=== PATIENT | female | born 1990 ===

== ENCOUNTER 2017-10-15 06:19 | Emergency (ER) | payer MEDICAID, OTHER ==
[2017-10-15 06:35] VITALS: BP 122/89; PULSE 100; RESP 18; TEMP 98.8; O2SAT 98
--- NOTE | 2017-10-15 07:40 | ED PDOC ---
- ECG O2 Sat by Pulse Oximetry: 98 Disposition - Disposition Referrals: Enrique Nick MD [Primary Care Provider] - Forms: [employer] (Pashto)
--- NOTE | 2017-10-15 07:59 | ED PDOC ---
HPI: General Adult Time Seen by Provider: 10/15/17 07:04 Chief Complaint (Nursing): Anxiety Chief Complaint (Provider): Anxiety History Per: Patient History/Exam Limitations: no limitations Onset/Duration Of Symptoms: Days (7 days ago) Current Symptoms Are (Timing): Still Present Additional Complaint(s): 27 y/o female with a past medical history of anxiety and depression, presents to the ED complaining of anxiety, onset of 7 days ago. Patient reports that her anxiety was triggered by a disagreement with her significant other mixed with alcohol abuse in the past week, and reports that she has had a problem with alcohol in the past. She states that she often relapses/binges after relationship or life stress. She reports of nausea, restlessness, sleeplessness , and left shoulder discomfort. She denies any suicidal ideation. Past Medical History Vital Signs: Last Vital Signs Temp 98.8 F 10/15/17 06:31 Pulse 100 H 10/15/17 06:31 Resp 18 10/15/17 06:31 BP 122/89 10/15/17 06:31 Pulse Ox 98 10/15/17 08:08 - Medical History PMH: Anxiety, Depression Denies: Diabetes, Hepatitis, HIV, HTN, Seizures, Sexually Transmitted Disease - Surgical History Surgical History: No Surg Hx - Family History Family History: States: Unknown Family Hx - Social History Current smoker - smoking cessation education provided: No Ex-Smoker (has not smoked in the last 12 months): No Alcohol: > 2 Drinks/Day Drugs: Denies - Home Medications Home Medications: Ambulatory Orders Medication Instructions Recorded Zolpidem HALF TABLET [Ambien] 2.5 mg PO HS #4 tab 08/15/16 - Allergies Allergies/Adverse Reactions: Allergies Allergy/AdvReac Type Severity Reaction Status Date / Time No Known Allergies Allergy Verified 10/15/17 06:47 Review of Systems ROS Statement: Except As Marked, All Systems Reviewed And Found Negative Gastrointestinal: Positive for: Nausea Musculoskeletal: Positive for: Shoulder Pain Psych: Positive for: Anxiety. Negative for: Suicidal ideation Physical Exam - Reviewed Nursing Documentation Reviewed: Yes Vital Signs Reviewed: Yes - Physical Exam Appears: Positive for: Non-toxic, No Acute Distress Head Exam: Positive for: ATRAUMATIC Skin: Positive for: Normal Color, Warm Eye Exam: Positive for: Normal appearance Neck: Positive for: Normal, Painless ROM, Supple Cardiovascular/Chest: Positive for: Regular Rate, Rhythm. Negative for: Murmur Respiratory: Positive for: Normal Breath Sounds. Negative for: Respiratory Distress Back: Positive for: Normal Inspection Extremity: Positive for: Normal ROM. Negative for: Pedal Edema, Deformity Neurologic/Psych: Positive for: Alert, Oriented, Other (anxious; poor eye contact; speech is clear; fair insight with poor judgement). Negative for: Motor/Sensory Deficits - ECG ECG: Positive for: Interpreted By Me, Viewed By Me ECG Rhythm: Positive for: Normal ST Segment, Sinus Rhythm (88) O2 Sat by Pulse Oximetry: 98 Medical Decision Making Medical Decision Making: Time: --07:35 Impression: --27 y/o female with anxiety and alcohol abuse Plan: --ECG --Jania EValuation --ED Urine Dip --ED Urine --ATivan 1mg PO Reassess cleared by crisis/ Dr Perales for DC Patient comfortable going home Refused CXR after risks explained given hx shoulder/ L upper chest pain r/o PTX or other chest pathology which can be life threatening Work note provided. HR 85 on re-eval. Scribe Attestation: Documented by Niall Henderson acting as a scribe for Yefri Smith DO. Disposition - Clinical Impression Clinical Impression: Anxiety, Alcohol use disorder - Patient ED Disposition Is Patient to be Admitted: No Counseled Patient/Family Regarding: Studies Performed, Diagnosis, Need For Followup, Rx Given - Disposition Referrals: Alcoholics Anonymous [Outside] [facility] [Outside] Enrique Nick MD [Primary Care Provider] - Disposition: Routine/Home Disposition Time: 08:30 Condition: STABLE Additional Instructions: Avoid alcohol use. Return to ER for any concern for self. Instructions: At-Risk Alcohol Use (ED), Anxiety (ED) Forms: [employer] (Montserratian), [facility] ED School/Work Excuse
--- NOTE | 2017-10-15 12:51 | CARD ---
APPROVED REPORT EKG Measurement Heart [id number] <Conclusion> Normal sinus rhythm Normal ECG
== END 2017-10-15 08:50 | disposition home or self-care (01) ==
LOC: H.ER 06:19
DX: F41.9 Anxiety disorder, unspecified (principal); F10.10 Alcohol abuse, uncomplicated; F32.9 Major depressive disorder, single episode, unspecified; Z87.891 Personal history of nicotine dependence

== ENCOUNTER 2018-02-06 20:06 | Emergency (ER) | payer BC, OTHER ==
[2018-02-06 20:16] VITALS: RESP 18
[2018-02-06] MEDS ORDERED: Albuterol 0.083% Inhal Sol (2.5 mg/3 mL) UD INH STA (20:51)
[2018-02-06] MEDS ORDERED: Albuterol 0.083% Inhal Sol (2.5 mg/3 mL) UD ONE (20:58)
[2018-02-06 21:19] LABS: BASO # 0.1 K/uL (0.0-0.2); BASO % 0.9 % (0.0-2.0); EOS # 0.1 K/uL (0.0-0.7); EOS % 1.8 % (0.0-4.0); LYMPH # 1.9 K/uL (1.0-4.3); LYMPH % 24.9 % (20.0-40.0); MEAN CELL VOLUME 93.1 fl (81.0-99.0); MEAN CORPUSCULAR HEMOGLOBIN 30.9 pg (27.0-31.0); MEAN CORPUSCULAR HGB CONC 33.2 g/dL (33.0-37.0); MEAN PLATELET VOLUME 9.3 fl (7.2-11.7); MONO # 0.7 K/uL (0.0-0.8); MONO % 9.5 % (0.0-10.0); NEUT # 4.8 K/uL (1.8-7.0); NEUT % 62.9 % (50.0-75.0); RBC 4.26 Mil/uL (3.80-5.20); RED CELL DISTRIBUTION WIDTH 17.3 % (11.5-14.5); WHITE BLOOD COUNT 7.6 K/uL (4.8-10.8)
[2018-02-06 21:28] LABS: ALB/GLOB RATIO 1.3 (1.0-2.1); ALBUMIN 4.6 g/dL (3.5-5.0); ALT/SGPT 42 U/L (9-52); AST/SGOT 39 U/L (14-36); BLOOD UREA NITROGEN 8 mg/dl (7-17); CALCIUM 9.4 mg/dL (8.4-10.2); GFR AFRICAN-AMERICAN > 60; GFR NON-AFRICAN AMERICAN > 60
[2018-02-06 21:32] LABS: HEMOGLOBIN 13.2 g/dL (12.0-16.0)
--- NOTE | 2018-02-06 21:50 | ED PDOC ---
HPI: Chest Pain Time Seen by Provider: 02/06/18 20:20 Chief Complaint (Nursing): Cough, Cold, Congestion Chief Complaint (Provider): Left sided chest pain, SOB x 1 week History Per: Patient History/Exam Limitations: no limitations Onset/Duration Of Symptoms: Days Current Symptoms Are (Timing): Still Present Quality: Sharp Associated Symptoms: denies: Nausea, Dyspnea, Diaphoresis, Syncope Modifying Factors: None Additional Complaint(s): 27 yo female with no medical problems presents with SOB, left sided pleuritic chest pain for a few days. Pt states she has been gettign gradually sick the last few days. No fever/chills. Past Medical History Reviewed: Historical Data, Nursing Documentation, Vital Signs Vital Signs: Last Vital Signs Temp 98.1 F 02/06/18 23:25 Pulse 83 02/06/18 23:25 Resp 18 02/06/18 23:25 BP 132/89 02/06/18 23:25 Pulse Ox 100 02/06/18 23:25 - Medical History PMH: Anxiety, Depression Denies: Diabetes, Hepatitis, HIV, HTN, Seizures, Sexually Transmitted Disease - Surgical History Surgical History: No Surg Hx - Family History Family History: States: Unknown Family Hx - Home Medications Home Medications: Ambulatory Orders Medication Instructions Recorded Zolpidem HALF TABLET [Ambien] 2.5 mg PO HS #4 tab 08/15/16 Albuterol Sulfate [Proventil Hfa] 0.09 mg IH Q6H #1 inhaler 02/06/18 Azithromycin [Zithromax] 250 mg PO DAILY #6 tab 02/06/18 predniSONE [predniSONE Tab] 20 mg PO DAILY #12 tab 02/06/18 - Allergies Allergies/Adverse Reactions: Allergies Allergy/AdvReac Type Severity Reaction Status Date / Time No Known Allergies Allergy Verified 10/15/17 06:47 Review of Systems ROS Statement: Except As Marked, All Systems Reviewed And Found Negative Constitutional: Negative for: Fever, Chills Respiratory: Positive for: Cough, Shortness of Breath Gastrointestinal: Negative for: Nausea, Vomiting, Abdominal Pain Physical Exam - Reviewed Nursing Documentation Reviewed: Yes Vital Signs Reviewed: Yes - Physical Exam Appears: Positive for: Well, Non-toxic, No Acute Distress Head Exam: Positive for: ATRAUMATIC, NORMAL INSPECTION, NORMOCEPHALIC Skin: Positive for: Normal Color, Warm, DRY Eye Exam: Positive for: Normal appearance ENT: Positive for: Normal ENT Inspection Neck: Positive for: Normal, Painless ROM Cardiovascular/Chest: Positive for: Regular Rate, Rhythm Respiratory: Positive for: CNT, Normal Breath Sounds Gastrointestinal/Abdominal: Positive for: Normal Exam, Soft Back: Positive for: Normal Inspection Extremity: Positive for: Normal ROM Neurologic/Psych: Positive for: Alert, Oriented - Laboratory Results Result Diagrams: 02/06/18 21:10 02/06/18 21:10 - ECG O2 Sat by Pulse Oximetry: 99 Medical Decision Making Medical Decision Making: Pt tachycardic while i was in room. HR >105. Pt states she also thinks her grandmother had a clotting disorder. Disposition - Clinical Impression Clinical Impression: URI (upper respiratory infection) - Patient ED Disposition Is Patient to be Admitted: No Counseled Patient/Family Regarding: Diagnosis, Need For Followup, Rx Given - Disposition Disposition: Routine/Home Disposition Time: 23:43 Condition: GOOD Prescriptions: Albuterol Sulfate [Proventil Hfa] 0.09 mg IH Q6H #1 inhaler Azithromycin [Zithromax] 250 mg PO DAILY #6 tab predniSONE [predniSONE Tab] 20 mg PO DAILY #12 tab Instructions: Bacterial Upper Respiratory Infection, Adult, Viral Upper Respiratory Infection, Adult (DC) Forms: [employer] (Argentine)
[2018-02-06] MEDS ORDERED: Iodixanol 320 MG/ML 100 ML BOTTLE IV ONE (21:58)
[2018-02-06] MEDS ORDERED: Sodium Chloride 0.9% 100 ML ONE (21:58)
--- NOTE | 2018-02-06 22:48 | CT ---
EXAM: CT Angiography Chest With Intravenous Contrast CLINICAL HISTORY: 27 years old, female; Pain and signs and symptoms; Tachypnea; Chest pain; Type not specified; Additional info: Pleuritic chest pain, tachycardia TECHNIQUE: Axial computed tomographic angiography images of the chest with intravenous contrast using pulmonary embolism protocol. All CT scans at this facility use one or more dose reduction techniques, viz.: automated exposure control; ma/kV adjustment per patient size (including targeted exams where dose is matched to indication; i.e. head); or iterative reconstruction technique. MIP reconstructed images were created and reviewed. Coronal and sagittal reformatted images were created and reviewed. CONTRAST: 80 mL of [id number] administered intravenously. COMPARISON: CR - CHEST TWO VIEWS (PA/LAT) 2018-02-06 21:23 FINDINGS: Limitations: Motion artifact - mild. Pulmonary arteries: No definite pulmonary embolism. Aorta: No aneurysm. No dissection. Lungs: No consolidation. Pleural space: No significant effusion. No pneumothorax. Heart: No cardiomegaly. No significant pericardial effusion. Bones/joints: No acute fracture. Soft tissues: Unremarkable. Lymph nodes: No pathologically enlarged lymph nodes. Liver: Fatty infiltration. IMPRESSION: 1. No definite CT evidence of pulmonary embolism. 2. Incidental/non-acute findings are described above.
[2018-02-06 23:25] VITALS: BP 132/89; PULSE 83; TEMP 98.1
[2018-02-06 23:43] VITALS: O2SAT 99
--- NOTE | 2018-02-07 08:39 | RAD ---
HISTORY: COMPARISON: 08/15/2016. TECHNIQUE: Chest PA and lateral FINDINGS: LINES AND TUBES: None. LUNG AND PLEURA: The lungs are well inflated and clear. HEART AND MEDIASTINUM: The heart is not enlarged. The hilar and mediastinal contours are within normal limits. SKELETAL STRUCTURES: The bony structures are within normal limits for the patient's age. VISUALIZED UPPER ABDOMEN: Normal. OTHER FINDINGS: None. IMPRESSION: No active pulmonary disease.
--- NOTE | 2018-02-07 10:39 | CARD ---
APPROVED REPORT EKG Measurement Heart [id number] <Conclusion> Normal sinus rhythm Normal ECG
== END 2018-02-07 00:16 | disposition home or self-care (01) ==
LOC: H.ER 20:06
DX: J06.9 Acute upper respiratory infection, unspecified (principal); Z86.59 Personal history of other mental and behavioral disorders
CPT/HCPCS: 71046; 71275; 80053; 81025; 84443; 85025; 85378; 93005; 94150; 94640; 99285; Q9967

== ENCOUNTER 2018-02-27 18:09 | Emergency (ER) | payer BC, OTHER ==
[2018-02-27 18:21] VITALS: PULSE 90; RESP 20; TEMP 98.2; O2SAT 98
--- NOTE | 2018-02-27 20:08 | ED PDOC ---
HPI: General Adult Time Seen by Provider: 02/27/18 18:10 Chief Complaint (Nursing): Anxiety Chief Complaint (Provider): anxiety History Per: Patient History/Exam Limitations: no limitations Onset/Duration Of Symptoms: Days (3 wk), Persistent Additional History Per: Patient Additional Complaint(s): 27 yo f with history of anxiety and depression (not on medications), as well as sleep apnea, here with c/o anxiety and palpitations as well as suprapubic pain, seasonal allergy symptoms for 3 weeks. no fever/chills/vomiting/diarrhea. Pt states was here a few weeks ago for the same and was given an albuterol pump with only minimal relief. pt denies suicidal or homicidal ideation. Past Medical History Vital Signs: Last Vital Signs Temp 98.2 F 02/27/18 18:19 Pulse 90 02/27/18 23:33 Resp 20 02/27/18 23:33 BP 126/78 02/27/18 23:33 Pulse Ox 98 02/27/18 23:33 - Medical History PMH: Anxiety, Depression Denies: Diabetes, Hepatitis, HIV, HTN, Seizures, Sexually Transmitted Disease - Surgical History Surgical History: No Surg Hx - Family History Family History: States: Unknown Family Hx - Social History Current smoker - smoking cessation education provided: No Alcohol: None Drugs: Denies - Home Medications Home Medications: Ambulatory Orders Medication Instructions Recorded Zolpidem HALF TABLET [Ambien] 2.5 mg PO HS #4 tab 08/15/16 Albuterol Sulfate [Proventil Hfa] 0.09 mg IH Q6H #1 inhaler 02/06/18 Azithromycin [Zithromax] 250 mg PO DAILY #6 tab 02/06/18 predniSONE [predniSONE Tab] 20 mg PO DAILY #12 tab 02/06/18 - Allergies Allergies/Adverse Reactions: Allergies Allergy/AdvReac Type Severity Reaction Status Date / Time No Known Allergies Allergy Verified 02/27/18 18:19 Physical Exam - Reviewed Nursing Documentation Reviewed: Yes Vital Signs Reviewed: Yes - Physical Exam Appears: Positive for: Well, Non-toxic, No Acute Distress Head Exam: Positive for: ATRAUMATIC, NORMAL INSPECTION, NORMOCEPHALIC Skin: Positive for: Normal Color, Warm, DRY Eye Exam: Positive for: EOMI, Normal appearance, PERRL ENT: Positive for: Normal ENT Inspection Neck: Positive for: Normal, Painless ROM Cardiovascular/Chest: Positive for: Regular Rate, Rhythm Respiratory: Positive for: CNT, Normal Breath Sounds Gastrointestinal/Abdominal: Positive for: Normal Exam, Soft Back: Positive for: Normal Inspection Extremity: Positive for: Normal ROM Neurologic/Psych: Positive for: Alert, Oriented - Laboratory Results Result Diagrams: 02/27/18 21:02 02/27/18 21:02 - ECG O2 Sat by Pulse Oximetry: 98 Medical Decision Making Medical Decision Makin yo with multiple complaints, including depression/palpitations and allergy symptoms. pt not on medications except albuterol which could cause palpitations. pt has histoyr of anxiety will rule out cardiac etiology versus anxiety pt with suprapubic pain, will rule out uti. pt requesting preg test and mega chl test 2252 Chest x-ray appears negative. Patient is aware that her LFTs are slighlty elevated. Patient will be discharged home. Scribe Attestation: Documented by Yves Soliman acting as a scribe for Geri Zambrano MD. Scribe Attestation: All medical record entries made by the Scribe were at my direction and personally dictated by me. I have reviewed the chart and agree that the record accurately reflects my personal performance of the history, physical exam, medical decision making, and the department course for this patient. I have also personally directed, reviewed, and agree with the discharge instructions and disposition. Disposition - Clinical Impression Clinical Impression: Anxiety - Patient ED Disposition Is Patient to be Admitted: No Counseled Patient/Family Regarding: Studies Performed, Diagnosis, Need For Followup - Disposition Disposition: Routine/Home Disposition Time: 20:00 Condition: IMPROVED Additional Instructions: follow up with your primary doctor in 1-2 days return to the ED with any worsening or concerning symptoms Instructions: Anxiety, Adult (DC) Forms: [employer] (Nicaraguan), [employer] ED School/Work Excuse
[2018-02-27 21:10] LABS: BASO # 0.1 K/uL (0.0-0.2); BASO % 1.2 % (0.0-2.0); EOS # 0.1 K/uL (0.0-0.7); HEMOGLOBIN 13.1 g/dL (12.0-16.0); LYMPH # 1.5 K/uL (1.0-4.3); LYMPH % 24.2 % (20.0-40.0); MEAN CELL VOLUME 92.9 fl (81.0-99.0); MEAN CORPUSCULAR HEMOGLOBIN 30.6 pg (27.0-31.0); MEAN CORPUSCULAR HGB CONC 32.9 g/dL (33.0-37.0); MEAN PLATELET VOLUME 9.5 fl (7.2-11.7); MONO # 0.4 K/uL (0.0-0.8); MONO % 6.9 % (0.0-10.0); NEUT # 4.1 K/uL (1.8-7.0); NEUT % 66.7 % (50.0-75.0); RBC 4.27 Mil/uL (3.80-5.20); RED CELL DISTRIBUTION WIDTH 16.8 % (11.5-14.5); WHITE BLOOD COUNT 6.1 K/uL (4.8-10.8)
[2018-02-27 21:29] LABS: SQUAMOUS EPITHIAL 10 /hpf (0-5); URINE BACTERIA RARE (<OCC); URINE BILIRUBIN NEGATIVE (NEGATIVE); URINE BLOOD SMALL (NEGATIVE); URINE CLARITY CLOUDY (Clear); URINE COLOR AMBER (YELLOW); URINE GLUCOSE (UA) NEG (Normal); URINE LEUKOCYTE ESTERASE NEG Leu/uL (Negative); URINE PROTEIN 100 mg/dL (NEGATIVE)
[2018-02-27 21:34] LABS: ALB/GLOB RATIO 1.4 (1.0-2.1); ALBUMIN 4.6 g/dL (3.5-5.0); ALT/SGPT 46 U/L (9-52); AST/SGOT 50 U/L (14-36); BLOOD UREA NITROGEN 11 mg/dl (7-17); CALCIUM 9.8 mg/dL (8.4-10.2); GFR AFRICAN-AMERICAN > 60; GFR NON-AFRICAN AMERICAN > 60
[2018-02-27 23:35] VITALS: BP 126/78
--- NOTE | 2018-02-28 09:15 | RAD ---
HISTORY: sob COMPARISON: Chest radiograph dated 02/06/2018. TECHNIQUE: Chest PA and lateral FINDINGS: LUNGS: No active pulmonary disease. PLEURA: No significant pleural effusion identified. No pneumothorax apparent. CARDIOVASCULAR: Normal. OSSEOUS STRUCTURES: No significant abnormalities. VISUALIZED UPPER ABDOMEN: Normal. OTHER FINDINGS: Bilateral nipple ornamentation. IMPRESSION: No active disease.
--- NOTE | 2018-02-28 11:22 | CARD ---
APPROVED REPORT EKG Measurement Heart [id number] [place] [id number] <Conclusion> Normal sinus rhythm with sinus arrhythmia Normal ECG
== END 2018-02-27 23:35 | disposition home or self-care (01) ==
LOC: H.ER 18:09
DX: F41.9 Anxiety disorder, unspecified (principal); F32.9 Major depressive disorder, single episode, unspecified